=== PATIENT | male | born 1995 | race Caucasian/White ===

== ENCOUNTER 2017-06-24 13:17 | Inpatient (IN) | payer BC ==
[2017-06-24] MEDS ORDERED: Ondansetron HCl/PF 4 MG/2 ML Vial ONE (13:31)
[2017-06-24] MEDS ORDERED: Insulin Regular 100 units/100 ml in NS IVPB SCH (14:00)
[2017-06-24 14:10] LABS: Hemoglobin 15.7 g/dL (14.0-18.0); Mean Corpuscular HGB CONC 34.1 g/dL (32.0-36.0); Mean Corpuscular Hemoglobin 30.6 pg (25.0-35.0); Mean Corpuscular Volume 89.9 fl (77.0-87.0); Mean Platelet Volume 6.9 fL (7.4-10.4); Platelet Count 345 thou/uL (130-400); RBC Distribution Width 12.1 % (11.5-14.5); Red Blood Cell (RBC) Count 5.14 mill/uL (4.00-5.20); White Blood Cell (WBC) Count 28.9 thou/uL (4.8-10.8)
[2017-06-24] MEDS ORDERED: Insulin Regular 300 UNITS/3 ML VIAL ONE (14:26)
[2017-06-24 14:31] LABS: ALT (SGPT) 26 U/L (8-55); AST (SGOT) 17 U/L (10-45); Albumin 4.9 g/dL (3.5-5.0); Alkaline Phosphatase 125 U/L (Less than 750); BUN (Urea Nitrogen) 19 mg/dL (8.4-21.0); Bilirubin, Total 0.7 mg/dL (0.2-1.2); Calc. Creatinine Clearance 0 mL/min (70-130); Calcium 9.4 mg/dL (7.8-10.44); Chloride 99 mmol/L (98-107); Estimated GFR-MDRD 44; Globulin 3.9 g/dL (2.4-3.5); Lipase 10 U/L (8-78); Phosphorus 5.4 mg/dL (2.3-4.7); Potassium 5.8 mmol/L (3.5-5.1); Protein, Total 8.8 g/dL (6.0-8.3); Sodium 135 mmol/L (136-145)
[2017-06-24 14:35] LABS: Carbon Dioxide Less than 8 mmol/L (22-29); Glucose 559 mg/dL (70-105)
[2017-06-24 14:40] LABS: Band 8 % (5-11); Lymphocytes 12 % (28-48); MDiff Complete? YES; Monocytes 5 % (0-4); Neutrophil 71 % (31-61); PLT Morphology Comment Appears Adequate; RBC Morphology Normal; Reactive Lymphocytes 4 % (0-10)
[2017-06-24 14:54] LABS: Base Excess-Venous -20.2 mmol/L (0 (+/- 2.5)); Bicarbonate (HCO3v) 6.2 mmol/L (1.0-85.0); CO2 Tension (PvCO2) 17.6 mmHg (41.0-51.0); Calcium, Ionized 1.03 mmol/L (1.12-1.32); Hemoglobin - Calc 14.9 g/dL (12.0-18.0); O2 Tension (PvO2) 59.8 mmHg (35.0-45.0); Potassium 8.3 mmol/L (3.4-4.7); T. Carbon Dioxide 6.8 mmol/L (1.0-85.0); pH (Venous) 7.158 (7.35-7.45); vO2 Saturation-calc 83.8 % (94-98)
[2017-06-24 14:55] LABS: Bilirubin Negative (Negative); Blood, Urine Small (Negative); Glucose, Urine (Dipstick) 500 mg/dL (Negative); Leukocyte Negative (Negative); Nitrite Negative (Negative); Protein, Urine (Dipstick) Trace mg/dL (Neg-Trace); Specific Gravity, Urine 1.025 (1.005-1.030); Urobilinogen 0.2 mg/dL (0.2-1.0)
[2017-06-24 15:00] LABS: Clarity Hazy (Clear)
[2017-06-24 15:04] LABS: Bacteria/HPF None Seen HPF (None Seen); Hyaline Casts/LPF 0-3 HYALINE CAST LPF (0-3 Hyaline); RBC/HPF None Seen HPF (0-3); Squamous Epithelial None Seen HPF (0-3); WBC/HPF None Seen HPF (0-3)
[2017-06-24 17:10] LABS: Amphetamine Not Detected (NotDetected); Barbiturates Screen Not Detected (NotDetected); Benzodiazepine Screen Not Detected (NotDetected); Cocaine Metabolite Screen Not Detected (NotDetected); Medtox Control Line Valid? VALID (VALID); Medtox Reader # READER 4; Methadone Not Detected (NotDetected); Methamphetamine Not Detected (NotDetected); Opiate Screen Not Detected (NotDetected); Oxycodone Screen Not Detected (NotDetected); Phencyclidine (PCP) Not Detected (NotDetected); THC/Cannabinoid Screen Not Detected (NotDetected); Tricyclic Screen Not Detected (NotDetected)
[2017-06-24 17:32] LABS: Anion Gap 27 mmol/L (10-20); BUN (Urea Nitrogen) 17 mg/dL (8.4-21.0); Calc. Creatinine Clearance 0 mL/min (70-130); Calcium 9.1 mg/dL (7.8-10.44); Carbon Dioxide 10 mmol/L (22-29); Chloride 105 mmol/L (98-107); Estimated GFR-MDRD 53; Glucose 336 mg/dL (70-105); Potassium 4.5 mmol/L (3.5-5.1); Sodium 137 mmol/L (136-145)
--- NOTE | 2017-06-24 18:04 | RAD ---
CHEST ONE VIEW: 06/24/17 HISTORY: 21-year-old male with history of hyperglycemia, nausea, vomiting, abdominal cramping with concern for pneumonia. Heart size is normal. The lungs are clear. No pneumonia, edema, pleural effusion or other acute proce ss. IMPRESSION: No acute intrathoracic disease. POS: [facility]
[2017-06-24] MEDS ORDERED: Acetaminophen 650 MG Suppository PR PRN (18:05)
[2017-06-24] MEDS ORDERED: CCU Electrolyte Replacement 1 EACH IVPB SCH (18:05)
[2017-06-24] MEDS ORDERED: Sodium Chloride 0.9% 1,000 ML IV PRN ×4 (18:05)
[2017-06-24] MEDS ORDERED: Dextrose 5 %-0.45 % NaCl 1,000 ML IV PRN (18:05)
[2017-06-24] MEDS ORDERED: Acetaminophen 325 MG TAB PO PRN (18:05)
[2017-06-24] MEDS ORDERED: NS 0.9% w/ 20 MEQ KCL 1,000 ML IV PRN ×2 (18:05)
[2017-06-24] MEDS ORDERED: Potassium Chloride 40 MEQ in Sodium Chloride 0.9% 250 ML 250 ML IVPB PRN (18:12)
[2017-06-24] MEDS ORDERED: Potassium Chloride 40 MEQ in Premix Bag 1 BAG IVPB PRN (18:12)
[2017-06-24] MEDS ORDERED: Potassium Phosphate 9 MMOL in Sodium Chloride 0.9% 100 ML IVPB PRN (18:12)
[2017-06-24] MEDS ORDERED: CCU ELECTROLYTE REPLACEMENT PROTOCOL FS PRN (18:12)
[2017-06-24] MEDS ORDERED: Potassium Chloride 20 MEQ TAB PO PRN (18:12)
[2017-06-24] MEDS ORDERED: Magnesium 2 GM/NS 0.9% 100 ML 2 GM in Premix Bag 1 BAG IVPB PRN (18:12)
[2017-06-24] MEDS ORDERED: Magnesium Oxide 400 MG TAB PO PRN ×2 (18:12)
[2017-06-24] MEDS ORDERED: Potassium Phosphate 15 MMOL in Sodium Chloride 0.9% 250 ML 250 ML IV PRN (18:12)
[2017-06-24] MEDS ORDERED: Potassium Phosphate 12 MMOL in Sodium Chloride 0.9% 250 ML 250 ML IV PRN (18:12)
--- NOTE | 2017-06-24 19:00 | HP ---
PRIMARY CARE PROVIDER: None. CHIEF COMPLAINT: Nausea and vomiting. HISTORY OF PRESENT ILLNESS: Mr. Boateng is a pleasant 21-year-old gentleman who was seen at [facility] on 06/24/2017. He was seen at a walk-in clinic earlier today and was sent t o the emergency room. There is a history of diabetes mellitus type 1. He has an insulin pump. Yesterday, he started feeli ng nauseous. He also reports vomiting. He reports generalized weakness. He also reports abdominal cramps, which have resolved. The remainder of his symptoms continued to worsen. He went to the [facility]. His initial blood sugar was found to be 276, subsequently increased to greater than 500. He had bolused himself 10 units of insulin approximately 1 hour prior to arrival. He als o reports ongoing nausea and extreme thirst. He denies any recent history of diabetic ketoacidosis, but reports that he was diagnosed with diabetes mellitus type when he was in diabetic ketoacidosis at age 10. He denies any cough. He denies any urinary symptoms. He denies any chest pain or shortness of breath. He reports being compliant with his medications. He also reports that there has been no recent change in his medications. REVIEW OF SYSTEMS: The following complete review of systems was negative, unless otherwise mentioned in the HPI or below: Constitutional: Weight loss or gain, ability to conduct usual activities. Skin: Rash, itching. Eyes: Double vision, pain. ENT/Mouth: Nose bleeding, neck stiffness, pain, tenderness. Cardiovascular: Palpitations, dyspnea on exertion, orthopnea. Respiratory: Shortness of breath, wheezing, cough, hemoptysis, fever or night sweats. Gastrointestinal: Poor appetite, abdominal pain, heartburn, nausea, vomiting, constipation, or diarrhea. Genitourinary: Urgency, frequency, dysuria, nocturia. Musculoskeletal: Pain, swelling. Neurologic/Psychiatric: Anxiety, depression. Allergy/Immunologic: Skin rash, bleeding tendency. PAST MEDICAL HISTORY: Diabetes mellitus type 1. PAST SURGICAL HISTORY: None. SOCIAL HISTORY: The patient denies smoking tobacco. He reports occasional alcohol use. He denies r ecreational drug use. FAMILY HISTORY: Significant for diabetes mellitus type 1 in his paternal grandfather. ALLERGIES: No known drug allergies. CURRENT MEDICATIONS: NovoLog insulin through insulin pump. PHYSICAL EXAMINATION: GENERAL: Mr. Boateng is awake and alert, not in acute distress. VITAL SIGNS: Blood pressure is 127/73, pulse is 111. His breathing at rate of 19 and saturating 100 % on room air. EYES: No scleral icterus. No conjunctival pallor. ENT: Dry mucosal membranes. No oropharyngeal erythema or exudates. NECK: Supple, nontender, normal range of movement. Trachea is midline. RESPIRATORY: Accessory muscles of breathing are not active. Chest wall movements are symmetric bila terally. LUNGS: Clear to auscultation without wheeze, rhonchi or crepitations. CARDIOVASCULAR: S1 and S2 are heard, regular and tachycardic. Peripheral pulses palpable. No carot id bruit. No pericardial rub. ABDOMEN: Soft, nontender, bowel sounds heard, no hepatomegaly, no splenomegaly. NEUROLOGIC: Cranial nerves II-XII intact, deep tendon reflexes are 2+. MUSCULOSKELETAL: Power is 5/5 in all 4 extremities. SKIN: No rashes or subcutaneous nodules. LYMPHATIC: No cervical lymphadenopathy. PSYCHIATRIC: Normal mood, normal affect, the patient is oriented to person, place, and time. LABORATORY DATA: Mr. Boateng' labs and investigations were reviewed. I reviewed his electrocardiogra m, which shows sinus tachycardia, no ST changes to suggest an acute coronary syndrome. I also review ed his chest x-ray, which does not show any pulmonary infiltrates. He has leukocytosis with 28,900 w stephanie cells, of which 71% are neutrophils. Band neutrophils are normal at 8%. He has normal hemoglob in and normal platelet count. Sodium is 137, potassium is 4.5, chloride 105, carbon dioxide is 10 at 1707 hours, improved from less than 8 at 1401 hours today, anion gap is 27, creatinine is 1.69 at 17 07 hours, improved from 1.96 at 1401 hours, TSH is low at 0.323, liver profile is unremarkable and ma gnesium is normal. Initial phosphorus was elevated at 5.4 at 1401 hours today. Urinalysis is positi ve for glucose, ketones and small amount of blood. Urine toxicology screen is negative. Serum beta hydroxybutyrate is elevated at 10.27. ASSESSMENT AND PLAN: Mr. Boateng is a pleasant 21-year-old gentleman who was seen at [facility] on 06/24/2017. His problem list includes: 1. Diabetic ketoacidosis. Mr. Boateng is presenting with diabetic ketoacidosis. The inciting factor for DKA is unclear at this time. He does have leukocytosis; however, there is no evidence of infect ion at this time. We will admit Mr. Boateng to [facility] to be treated with intravenous fluids and insulin per DKA protocol. 2. Low TSH: We will check free T3 and free T4. 3. Acute kidney injury secondary to diabetic ketoacidosis. We will provide intravenous fluids and r echeck. 4. Metabolic acidosis: Improving, secondary to diabetic ketoacidosis. 5. Leukocytosis: No clear evidence of infection at this time, recheck CBC. LEVEL OF RISK: High. LEVEL OF COMPLEXITY: High.
[2017-06-24 19:14] LABS: Free T4 (Free Thyroxine) 1.08 ng/dL (0.70-1.48)
[2017-06-24 19:31] VITALS: BMI 21.4
[2017-06-24] MEDS: D5 1/2 NS w/20 mEq KCL 1,000 ML IV PRN ×2 (19:48→23:34)
[2017-06-24 22:08] LABS: Anion Gap 15 mmol/L (10-20); BUN (Urea Nitrogen) 13 mg/dL (8.4-21.0); Calc. Creatinine Clearance 78 mL/min (70-130); Calcium 8.4 mg/dL (7.8-10.44); Carbon Dioxide 13 mmol/L (22-29); Chloride 109 mmol/L (98-107); Estimated GFR-MDRD 58; Glucose 251 mg/dL (70-105); Potassium 4.3 mmol/L (3.5-5.1); Sodium 133 mmol/L (136-145)
[2017-06-25 02:28] LABS: #Basophils 0.1 thou/uL (0.0-0.2); #Eosinphils 0.1 thou/uL (0.0-0.7); #Lymphocytes 1.7 thou/uL (1.20-3.40); #Monocytes 1.4 thou/uL (0.11-0.59); #Neutrophils 13.2 thou/uL (1.40-6.50); %Basophils 0.3 % (0.0-1.0); %Eosinophils 0.4 % (0.0-10.0); %Lymphocytes 10.3 % (28.0-48.0); %Monocytes 8.3 % (0.0-4.0); %Neutrophils 80.7 % (31.0-61.0); Hemoglobin 14.2 g/dL (14.0-18.0); Mean Corpuscular Hemoglobin 31.4 pg (25.0-35.0); Mean Corpuscular Volume 89.8 fl (77.0-87.0); Mean Platelet Volume 7.9 fL (7.4-10.4); Platelet Count 189 thou/uL (130-400); RBC Distribution Width 12.3 % (11.5-14.5); Red Blood Cell (RBC) Count 4.53 mill/uL (4.00-5.20); White Blood Cell (WBC) Count 16.3 thou/uL (4.8-10.8)
[2017-06-25 02:32] LABS: Anion Gap 11 mmol/L (10-20); BUN (Urea Nitrogen) 11 mg/dL (8.4-21.0); Calc. Creatinine Clearance 96 mL/min (70-130); Calcium 8.8 mg/dL (7.8-10.44); Carbon Dioxide 18 mmol/L (22-29); Chloride 109 mmol/L (98-107); Estimated GFR-MDRD 74; Glucose 223 mg/dL (70-105); Potassium 4.1 mmol/L (3.5-5.1); Sodium 134 mmol/L (136-145)
[2017-06-25] MEDS: D5 1/2 NS w/20 mEq KCL 1,000 ML IV PRN (03:30)
--- NOTE | 2017-06-25 08:08 | PDOC.PN ---
- Subjective Encounter Start Date: 06/25/17 Encounter Start Time: 08:05 Mr. Boateng was seen today in follow-up of DKA. He says he is feeling much better this morning. He denies nausea and vomiting. He is not sure what caused him to go into DKA. He notes he felt sick about 2 days prior, and vomited the night before. - Objective MAR Reviewed: Yes Vital Signs & Weight: Vital Signs (12 hours) Temp Pulse Resp BP Pulse Ox 06/25/17 07:37 99.8 F H 91 16 100 06/25/17 07:07 98.8 F 81 16 127/70 99 06/25/17 03:53 99.8 F H 91 16 124/60 100 06/24/17 23:47 99.8 F H 85 16 125/56 L 100 06/24/17 20:30 98.9 F 89 18 100 Weight Weight 158 lb 7 oz I&O: 06/24/17 06/25/17 06/26/17 06:59 06:59 06:59 Intake Total 3000 120 Output Total 900 Balance 2100 120 Result Diagrams: 06/25/17 02:03 06/25/17 02:03 Additional Labs: Accuchecks 06/25/17 06/25/17 06/25/17 07:09 06:30 05:31 POC Glucose 132 H 155 H 158 H 06/25/17 06/25/17 06/25/17 04:35 03:34 02:33 POC Glucose 172 H 185 H 215 H 06/25/17 06/25/17 06/24/17 01:36 00:30 23:33 POC Glucose 209 H 226 H 225 H 06/24/17 06/24/17 06/24/17 22:36 21:33 20:35 POC Glucose 244 H 240 H 210 H 06/24/17 19:37 POC Glucose 228 H Phys Exam - Physical Examination HEENT: PERRLA Respiratory: no wheezing, no rales + rhonchi- initially, then cleared with cough Cardiovascular: RRR, no significant murmur, no rub tachycardic Gastrointestinal: soft, non-tender, no distention, positive bowel sounds Musculoskeletal: no edema, pulses present Neurological: non-focal Dx/Plan (1) DKA, type 1 Code(s): E10.10 - TYPE 1 DIABETES MELLITUS WITH KETOACIDOSIS WITHOUT COMA Status: Acute - Plan * DKA- this has resolved on the insulin drip * Will transition him back to the insulin pump, and allow him to self correct * Leukocytosis- likely from the physiologic stress of DKA- will monitor overnight * He can be moved to the medical floor..
[2017-06-25] MEDS ORDERED: Dextrose 50% Abboject 50 ML SYRINGE SLOW IVP PRN (08:16)
[2017-06-25] MEDS ORDERED: Dextrose 5% in Water 1,000 ML IV PRN (08:16)
[2017-06-25] MEDS: HumaLOG 300 UNITS/3 ML VIAL SC PRN ×2 (17:31→20:56)
[2017-06-26 04:18] LABS: #Basophils 0.1 thou/uL (0.0-0.2); #Eosinphils 0.1 thou/uL (0.0-0.7); #Lymphocytes 2.8 thou/uL (1.20-3.40); #Monocytes 0.5 thou/uL (0.11-0.59); #Neutrophils 6.1 thou/uL (1.40-6.50); %Basophils 0.6 % (0.0-1.0); %Eosinophils 0.9 % (0.0-10.0); %Lymphocytes 29.5 % (28.0-48.0); %Monocytes 5.6 % (0.0-4.0); %Neutrophils 63.4 % (31.0-61.0); Hemoglobin 13.1 g/dL (14.0-18.0); Mean Corpuscular Volume 88.6 fl (77.0-87.0); Mean Platelet Volume 6.4 fL (7.4-10.4); Platelet Count 244 thou/uL (130-400); RBC Distribution Width 11.9 % (11.5-14.5); Red Blood Cell (RBC) Count 4.23 mill/uL (4.00-5.20); White Blood Cell (WBC) Count 9.6 thou/uL (4.8-10.8)
[2017-06-26] MEDS: HumaLOG 300 UNITS/3 ML VIAL SC PRN ×2 (06:12→11:24)
[2017-06-26 09:39] LABS: Anion Gap 14 mmol/L (10-20); BUN (Urea Nitrogen) 10 mg/dL (8.4-21.0); Calc. Creatinine Clearance 118 mL/min (70-130); Calcium 9.3 mg/dL (7.8-10.44); Carbon Dioxide 24 mmol/L (22-29); Chloride 100 mmol/L (98-107); Estimated GFR-MDRD Greater than 90; Glucose 252 mg/dL (70-105); Potassium 3.3 mmol/L (3.5-5.1); Sodium 135 mmol/L (136-145)
[2017-06-26 11:23] VITALS: BP 131/79; TEMP 98.4
--- NOTE | 2017-06-26 12:45 | PDOC.PN ---
- Subjective Encounter Start Date: 06/26/17 Encounter Start Time: 12:43 Mr. Boateng was seen today in follow-up. He does not have any complaints, and just wants to go home. He believes the reashis blood sugars have been going up, is that he needs a " site change" on his pump, and he can do that at home. - Objective MAR Reviewed: Yes Vital Signs & Weight: Vital Signs (12 hours) Temp Pulse Resp BP Pulse Ox 06/26/17 11:22 98.4 F 69 18 131/79 100 06/26/17 08:00 98.2 F 81 18 98 06/26/17 07:35 98.2 F 81 18 111/65 98 06/26/17 04:00 98.5 F 69 20 122/63 97 Weight Weight 157 lb 7 oz I&O: 06/25/17 06/26/17 06/27/17 06:59 06:59 06:59 Intake Total 3000 1192.5 Output Total 900 Balance 2100 1192.5 Result Diagrams: 06/26/17 03:48 06/26/17 09:09 Additional Labs: Accuchecks 06/26/17 06/26/17 06/26/17 11:15 06:13 04:23 POC Glucose 303 H 232 H 284 H 06/25/17 06/25/17 06/25/17 20:54 18:56 16:10 POC Glucose 263 H 270 H 198 H Phys Exam - Physical Examination HEENT: PERRLA Respiratory: no wheezing, no rales, no rhonchi, clear to auscultation bilateral Cardiovascular: RRR, no significant murmur, no rub Gastrointestinal: soft, non-tender, no distention, positive bowel sounds Musculoskeletal: no edema Dx/Plan (1) DKA, type 1 Code(s): E10.10 - TYPE 1 DIABETES MELLITUS WITH KETOACIDOSIS WITHOUT COMA Status: Acute - Plan * DKA- he is out of DKA * His WBC count is now normal, and he has not had any fever- stable for discharge home * Will give a dose of long acting insulin before he goes home.
[2017-06-26] MEDS ORDERED: Potassium Chloride 20 MEQ TAB PO SCH (13:00)
[2017-06-26] MEDS ORDERED: Insulin Detemir 100 UNITS/ML 6 UNITS in Pre-Filled Syringe 1 EACH SC SCH (13:30)
--- NOTE | 2017-06-26 19:54 | EKG ---
Test Reason : Blood Pressure : / mmHG Vent. Rate : 126 BPM Atrial Rate : 126 BPM P-R Int : 200 ms QRS Dur : 106 ms QT Int : 266 ms P-R-T Axes : 077 071 -11 degrees QTc Int : 385 ms Sinus tachycardia Incomplete right bundle branch block Nonspecific T wave abnormality Abnormal ECG Confirmed by JEANNIE MONGE D.O. ([id number]), supervising editor trailer JAREN WHARTON ([id number]) on 06/26/2017 7:54:21 PM Referred By: Confirmed By:JEANNIE MONGE D.O.
--- NOTE | 2017-06-26 22:00 | DIS ---
DATE OF ADMISSION: 06/24/2017 DATE OF DISCHARGE: 06/26/2017 PRIMARY CARE PHYSICIAN: Dr. Missy Lazar in [place]. DISCHARGE DISPOSITION: Home. PRIMARY DISCHARGE DIAGNOSIS: Diabetic ketoacidosis. DISCHARGE MEDICATIONS: Include Lantus insulin 6 units daily as needed and NovoLog on a sliding scale basis. He is to continue his insulin pump as directed. CODE STATUS: FULL CODE. ALLERGIES: No known drug allergies. HOSPITAL COURSE: Mr. Boateng is a 21-year-old gentleman that has type 1 diabetes mellitus. He was di agnosed when he was around 10 years old. He was feeling sick a few days prior to admission with some nausea and flu-like symptoms and he reported to the emergency room after it was noted that his blood sugars were reading high. He was found to be in DKA. He was admitted and started on an insulin drip . There was no evidence of any bacterial infection; however, and he initially had a leukocytosis, wh ich resolved after the DKA resolved. He was afebrile and feeling much better the following day. He believes that his blood sugars are elevated as a result of site failure and that he needs a slight ch isaiah in possibly the insulin is not being absorbed. Due to concerns for this went ahead and gave him a dose of long-acting insulin prior to discharge, in the event that he is not absorbing his insulin subcutaneously and we will send him home with a prescription for a long-acting pen. He says he aurea gaston has NovoLog at home and he is fairly confident that if he changes his site that the problem will b e resolved. He is therefore being discharged home and is to have a close followup with his primary c are physician.
[2017-06-27] MEDS ORDERED: Insulin Detemir 100 UNITS/ML 6 UNITS in Pre-Filled Syringe 1 EACH SC SCH (09:00)
== END 2017-06-26 13:31 | disposition home or self-care (01) | DRG 638 ==
LOC: ERS 13:17 → IMCU/EMU 18:54 → T4-B 06-25 13:46
PROVIDERS: ADMIT Internal Medicine; ATTEND Internal Medicine
DX: N17.9 Acute kidney failure, unspecified; Z79.4 Long term (current) use of insulin; Z96.41 Presence of insulin pump (external) (internal); E10.10 Type 1 diabetes mellitus with ketoacidosis without coma
CPT/HCPCS: 36415; 36416; 71045; 80048; 80053; 80306; 81003; 81015; 82010; 82330; 82803; 83690; 83735; 84100; 84439; 84443; 84481; 85025; 93005; 96365; 96366; 96375; 96376; J1815; J2405; J7050